=== PATIENT | male | born 1945 | race Asian ===

== ENCOUNTER 2017-03-21 16:55 | Emergency (ER) | payer MEDICARE, MEDICAID ==
[~2017-03-21] VITALS: Ht 162.6 cm; Wt 79.1 kg
[~2017-03-21 16:55] MED LIST: AMLO-511 PO; ASPI325T52 PO; ATEN50TA PO; ATOR20TA65 PO; LISI40TA4 PO; NITR.4 SL; RANO500T3 PO
[2017-03-21] MEDS ORDERED: ALBUTEROL SULFATE 2.5 MG/0.5 ML NEB SOLUTION NEB ONE (19:30)
[2017-03-21] MEDS ORDERED: IPRATROPIUM BROMIDE 0.5 MG/2.5 ML NEB SOLUTION NEB ONE (19:30)
[2017-03-21 19:35] LABS: BASOPHILS % (AUTO) 0.3 % (0.0-2.0); HEMATOCRIT 43.3 % (41-53); HEMOGLOBIN 14.4 g/dL (13.5-17.5); LYMPHOCYTES # (AUTO) 1.7 K/uL (1.0-4.8); LYMPHOCYTES % (AUTO) 24.5 % (22.0-44.0); MEAN CORPUSCULAR HEMOGLOBIN 28.5 pg (26.0-34.0); MEAN CORPUSCULAR HGB CONC 33.3 G/dL (31.0-37.0); MEAN CORPUSCULAR VOLUME 85 fL (80-100); MONOCYTES # (AUTO) 0.6 K/uL (0.1-1.0); MONOCYTES % (AUTO) 9.1 % (2.0-9.0); NEUTROPHILS # (AUTO) 3.9 K/uL (1.8-7.7); NEUTROPHILS % (AUTO) 56.1 % (40.0-70.0); PLATELET COUNT (AUTO) 280 K/uL (150-450); RED BLOOD CELL COUNT(AUTO) 5.07 MIL/uL (4.50-5.90); RED CELL DISTRIBUTION WIDTH 13.7 % (11.5-14.5)
[2017-03-21 19:40] LABS: ANION GAP 7 mmol/L (8-16); CALCIUM, TOTAL 9.4 mg/dL (8.8-10.5); CARBON DIOXIDE 30 mmol/L (22-29); CHLORIDE 101 mmol/L (98-107); CREATININE 1.38 mg/dL (0.60-1.30); GLOMERULAR FILTR. RATE CALC 51 mL/min (>60); POTASSIUM 3.7 mmol/L (3.5-5.1); SODIUM SERUM 138 mmol/L (136-145); UREA NITROGEN, BLOOD 23 mg/dL (7-18)
[2017-03-21 19:46] LABS: ALANINE AMINOTRANSFERASE 28 U/L (12-78); ALBUMIN 3.9 g/dL (3.4-5.0); ASPARTATE AMINOTRANSFERASE 18 U/L (15-37); BILIRUBIN,TOTAL 0.5 mg/dL (0.1-1.0); CREATINE KINASE, TOTAL 63 U/L (39-308); TOTAL PROTEIN, SERUM 8.3 g/dL (6.4-8.2)
[2017-03-21 19:48] LABS: PROTHROMBIN TIME 10.2 SEC (9.4-11.6)
[2017-03-21 20:15] LABS: B-TYPE NATRIURETIC PEPTIDE 76 pg/mL (0-100)
[2017-03-21 21:06] LABS: APPEARANCE,URINE CLEAR (CLEAR); GLUCOSE, URINE (UA) NEGATIVE (NEGATIVE); KETONES,URINE NEGATIVE (NEGATIVE); LEUKOCYTE ESTERASE ,URINE NEGATIVE (NEGATIVE); OCCULT BLOOD,URINE NEGATIVE (NEGATIVE); PROTEIN,URINE NEGATIVE (NEGATIVE)
[2017-03-21 21:14] LABS: ADD UA MICROSCOPIC NO
[2017-03-21 22:11] VITALS: BP 145/81
[2017-03-21] MEDS ORDERED: AmLODIPine BESYLATE 5 MG TABLET PO ONE (23:00)
== END 2017-03-21 22:57 | disposition home or self-care (01) ==
LOC: EMS 16:56
DX: R07.2 Precordial pain (principal); J44.9 Chronic obstructive pulmonary disease, unspecified; I11.9 Hypertensive heart disease without heart failure; I25.10 Atherosclerotic heart disease of native coronary artery without angina pectoris; E78.00 Pure hypercholesterolemia, unspecified; Z95.0 Presence of cardiac pacemaker
CPT/HCPCS: 93005; 94640; 99285

== ENCOUNTER 2019-03-04 08:04 | Emergency (ER) | payer MEDICARE, OTHER ==
[~2019-03-04] VITALS: Ht 162.6 cm; Wt 86.9 kg
[~2019-03-04 08:04] MED LIST changes: -AMLO-511 PO; +AMLO5TAB9 PO; +ASPI-1515 PO; -ASPI325T52 PO; -NITR.4 SL; +NITR0.4T52 SL
[2019-03-04] MEDS ORDERED: NITROGLYCERIN 0.4 MG SUBLINGUAL TABLET #25 SL ONE ×2 (08:13→08:30)
[2019-03-04] MEDS ORDERED: ASPIRIN 81 MG CHEWABLE TABLET ONE (08:13)
[2019-03-04] MEDS ORDERED: ASPIRIN 325 MG TABLET PO ONE (08:30)
[2019-03-04] MEDS ORDERED: SODIUM CHLORIDE 0.9% 500 ML IV ONE ×2 (08:30)
[2019-03-04] MEDS ORDERED: NITROGLYCERIN 50 MG/D5% WATER 250 ML IV PRN (08:30)
[2019-03-04] MEDS ORDERED: NITROGLYCERIN 50 MG/D5% WATER 250 ML ONE (08:41)
[2019-03-04 08:47] LABS: BASOPHILS % (AUTO) 0.4 % (0.0-2.0); EOSINOPHILS % (AUTO) 4.5 % (1.0-6.0); HEMATOCRIT 36.2 % (41-53); LYMPHOCYTES % (AUTO) 14.3 % (22.0-44.0); MEAN CORPUSCULAR HEMOGLOBIN 28.8 pg (26.0-34.0); MEAN CORPUSCULAR HGB CONC 33.2 G/dL (31.0-37.0); MEAN CORPUSCULAR VOLUME 87 fL (80-100); MONOCYTES # (AUTO) 0.4 K/uL (0.1-1.0); MONOCYTES % (AUTO) 6.1 % (2.0-9.0); NEUTROPHILS # (AUTO) 5.1 K/uL (1.8-7.7); NEUTROPHILS % (AUTO) 74.7 % (40.0-70.0); PLATELET COUNT (AUTO) 218 K/uL (150-450); RED BLOOD CELL COUNT(AUTO) 4.18 MIL/uL (4.50-5.90); RED CELL DISTRIBUTION WIDTH 13.6 % (11.5-14.5)
[2019-03-04 09:00] LABS: PROTHROMBIN TIME 9.9 SEC (9.4-11.6)
[2019-03-04] MEDS ORDERED: HEPARIN SODIUM,PORCINE 5,000 UNITS/ML VIAL ONE (09:02)
[2019-03-04] MEDS ORDERED: HEPARIN SODIUM,PORCINE 5,000 UNITS/ML VIAL IVP ONE ×2 (09:15)
[2019-03-04 09:18] VITALS: BP 129/74
[2019-03-04 09:24] LABS: CREATININE 1.7 mg/dL (0.60-1.30)
[2019-03-04 09:31] LABS: ALBUMIN 3.3 g/dL (3.4-5.0); BILIRUBIN,TOTAL 0.6 mg/dL (0.1-1.0); TOTAL PROTEIN, SERUM 6.5 g/dL (6.4-8.2)
== END 2019-03-04 09:36 | disposition short-term general hospital (02) ==
LOC: EMS 08:08
DX: I21.3 ST elevation (STEMI) myocardial infarction of unspecified site (principal); E11.65 Type 2 diabetes mellitus with hyperglycemia; N28.9 Disorder of kidney and ureter, unspecified; I10 Essential (primary) hypertension; E78.00 Pure hypercholesterolemia, unspecified; I25.10 Atherosclerotic heart disease of native coronary artery without angina pectoris; Z79.82 Long term (current) use of aspirin; Z79.899 Other long term (current) drug therapy
CPT/HCPCS: 71045; 80053; 82550; 83880; 84484; 85025; 85610; 85730; 93005; 96365; 96375; 99291; J1644; J3490; J7040

== ENCOUNTER 2019-06-04 10:34 | Inpatient (IN) | payer MEDICARE, OTHER ==
[~2019-06-04] VITALS: Ht 162.6 cm; Wt 81.1 kg
[2019-06-04 13:19] LABS: BASOPHILS % (AUTO) 0.3 % (0.0-2.0); HEMATOCRIT 45.8 % (41-53); HEMOGLOBIN 14.8 g/dL (13.5-17.5); LYMPHOCYTES # (AUTO) 0.9 K/uL (1.0-4.8); LYMPHOCYTES % (AUTO) 9.6 % (22.0-44.0); MEAN CORPUSCULAR HGB CONC 32.3 G/dL (31.0-37.0); MEAN CORPUSCULAR VOLUME 87 fL (80-100); MONOCYTES # (AUTO) 0.7 K/uL (0.1-1.0); MONOCYTES % (AUTO) 8.1 % (2.0-9.0); NEUTROPHILS # (AUTO) 7.2 K/uL (1.8-7.7); PLATELET COUNT (AUTO) 237 K/uL (150-450); RED BLOOD CELL COUNT(AUTO) 5.28 MIL/uL (4.50-5.90); RED CELL DISTRIBUTION WIDTH 13.8 % (11.5-14.5)
[2019-06-04 13:34] LABS: CALCIUM, TOTAL 9.4 mg/dL (8.8-10.5); CREATININE 2.34 mg/dL (0.60-1.30); POTASSIUM 4.5 mmol/L (3.5-5.1)
[2019-06-04 13:40] LABS: ALBUMIN 3.8 g/dL (3.4-5.0); BILIRUBIN,TOTAL 0.7 mg/dL (0.1-1.0); TOTAL PROTEIN, SERUM 8.6 g/dL (6.4-8.2)
[2019-06-04 13:41] LABS: LACTIC ACID 1.4 mmol/L (0.4-2.0)
[2019-06-04] MEDS ORDERED: ASPIRIN 81 MG CHEWABLE TABLET PO ONE (15:45)
[2019-06-04 15:54] LABS: INFLUENZA TYPE A POSITIVE FOR TYPE A (NEGATIVE); INFLUENZA TYPE B NEGATIVE FOR TYPE B (NEGATIVE)
[2019-06-04 16:57] LABS: APPEARANCE,URINE CLEAR (CLEAR); GLUCOSE, URINE (UA) NEGATIVE (NEGATIVE); KETONES,URINE NEGATIVE (NEGATIVE); LEUKOCYTE ESTERASE ,URINE NEGATIVE (NEGATIVE); NITRATE,URINE NEGATIVE (NEGATIVE); OCCULT BLOOD,URINE NEGATIVE (NEGATIVE); PROTEIN,URINE POS 1+ (NEGATIVE)
[2019-06-04 16:58] LABS: BILIRUBIN,URINE PRELIM. POSITIVE (NEGATIVE)
[2019-06-04 17:07] LABS: BACTERIA,URINE None Seen /HPF (None Seen); RBC,URINE None Seen /HPF (0-2); SQUAMOUS EPITHELIAL CELL,UR Rare /LPF (None Seen); WBC,URINE None Seen /HPF (0-5)
[2019-06-04] MEDS ORDERED: OSELTAMIVIR PHOSPHATE 75 MG CAPSULE PO ONE (17:30)
[2019-06-04] MEDS ORDERED: ACETAMINOPHEN 325 MG TABLET PO PRN ×2 (18:30→22:00)
[2019-06-04] MEDS ORDERED: 0.9% SODIUM CHLORIDE 10 ML SYRINGE IVP PRN ×2 (18:30→22:00)
[2019-06-04] MEDS ORDERED: ONDANSETRON HCL 4 MG/2 ML VIAL IVP PRN ×2 (18:30→22:00)
[2019-06-04] MEDS ORDERED: ZOLPIDEM TARTRATE 5 MG TABLET PO PRN (22:00)
[2019-06-04] MEDS ORDERED: IPRATROPIUM BROMIDE 0.5 MG/2.5 ML NEB SOLUTION NEB PRN (22:00)
[2019-06-04] MEDS ORDERED: ALBUTEROL SULFATE 2.5 MG/0.5 ML NEB SOLUTION NEB PRN (22:00)
[2019-06-04] MEDS ORDERED: NITROGLYCERIN 0.4 MG SUBLINGUAL TABLET #25 SL PRN (22:00)
[2019-06-04 22:29] VITALS: BP 157/78
[2019-06-04] MEDS ORDERED: SODIUM CHLORIDE 0.9% 250 ML IV ONE (22:35)
[2019-06-04] MEDS: RANOLAZINE 500 MG ER TABLET PO SCH (22:42)
[2019-06-04] MEDS: ATORVASTATIN CALCIUM 20 MG TABLET PO SCH (22:42)
[2019-06-04] MEDS: CefTRIAXone 1 GM/DEXTROSE 50 ML IV SCH (22:43)
[2019-06-05] MEDS: HEPARIN SODIUM,PORCINE 5,000 UNITS/ML VIAL SQ SCH ×3 (00:13→16:00)
[2019-06-05] MEDS: AZITHROMYCIN 500 MG/NS 250 ML IV SCH (00:13)
[2019-06-05] MEDS: IPRATROPIUM BROMIDE 0.5 MG/2.5 ML NEB SOLUTION NEB SCH ×4 (02:35→20:10)
[2019-06-05] MEDS: ALBUTEROL SULFATE 2.5 MG/0.5 ML NEB SOLUTION NEB SCH ×4 (02:35→20:10)
[2019-06-05 03:36] VITALS: BP 129/62
[2019-06-05 06:58] LABS: BASOPHILS % (AUTO) 0.2 % (0.0-2.0); EOSINOPHILS % (AUTO) 2.9 % (1.0-6.0); HEMATOCRIT 40.1 % (41-53); HEMOGLOBIN 13.1 g/dL (13.5-17.5); LYMPHOCYTES # (AUTO) 1.4 K/uL (1.0-4.8); LYMPHOCYTES % (AUTO) 18.6 % (22.0-44.0); MEAN CORPUSCULAR HEMOGLOBIN 28.1 pg (26.0-34.0); MEAN CORPUSCULAR HGB CONC 32.6 G/dL (31.0-37.0); MEAN CORPUSCULAR VOLUME 86 fL (80-100); MONOCYTES # (AUTO) 0.7 K/uL (0.1-1.0); MONOCYTES % (AUTO) 9.4 % (2.0-9.0); NEUTROPHILS # (AUTO) 5.3 K/uL (1.8-7.7); NEUTROPHILS % (AUTO) 68.9 % (40.0-70.0); PLATELET COUNT (AUTO) 228 K/uL (150-450); RED BLOOD CELL COUNT(AUTO) 4.65 MIL/uL (4.50-5.90); RED CELL DISTRIBUTION WIDTH 14.2 % (11.5-14.5)
[2019-06-05 07:26] LABS: ALBUMIN 3.4 g/dL (3.4-5.0); BILIRUBIN,TOTAL 0.6 mg/dL (0.1-1.0); CALCIUM, TOTAL 8.6 mg/dL (8.8-10.5); CREATININE 2.09 mg/dL (0.60-1.30); POTASSIUM 4.1 mmol/L (3.5-5.1); TOTAL PROTEIN, SERUM 7.5 g/dL (6.4-8.2)
[2019-06-05 07:31] VITALS: BP 126/64
[2019-06-05] MEDS: DOCUSATE SODIUM 100 MG CAPSULE PO SCH ×2 (08:11→21:00)
[2019-06-05] MEDS: PANTOPRAZOLE SODIUM 40 MG DR TABLET PO SCH (08:12)
[2019-06-05] MEDS: ASPIRIN 325 MG EC TABLET PO SCH (08:12)
[2019-06-05] MEDS: RANOLAZINE 500 MG ER TABLET PO SCH (08:13)
[2019-06-05] MEDS: AmLODIPine BESYLATE 5 MG TABLET PO SCH (08:13)
[2019-06-05] MEDS ORDERED: ATENOLOL 50 MG TABLET PO SCH (09:00)
[2019-06-05] MEDS: OSELTAMIVIR PHOSPHATE 30 MG CAPSULE PO SCH ×2 (09:00→21:15)
[2019-06-05] MEDS: LISINOPRIL 20 MG TABLET PO SCH (09:00)
[2019-06-05] MEDS ORDERED: OSELTAMIVIR PHOSPHATE 30 MG CAPSULE PO SCH (09:00)
[2019-06-05 11:24] VITALS: BP 102/53
[2019-06-05 15:01] VITALS: BP 117/51
[2019-06-05] MEDS ORDERED: CARV12.530 PO (16:33)
[2019-06-05] MEDS ORDERED: TICA60TA PO (16:33)
[2019-06-05 19:55] VITALS: BP 131/73
[2019-06-05] MEDS: ATORVASTATIN CALCIUM 20 MG TABLET PO SCH (21:15)
[2019-06-05] MEDS: CefTRIAXone 1 GM/DEXTROSE 50 ML IV SCH (21:16)
[2019-06-05 23:48] VITALS: BP 131/63
[2019-06-06] VITALS (7 sets, daily range): BP systolic 107–151; BP diastolic 47–84
[2019-06-06] MEDS: AZITHROMYCIN 500 MG/NS 250 ML IV SCH ×2 (00:02→23:38)
[2019-06-06] MEDS: HEPARIN SODIUM,PORCINE 5,000 UNITS/ML VIAL SQ SCH ×4 (00:02→23:38)
[2019-06-06] MEDS: RANOLAZINE 500 MG ER TABLET PO SCH ×3 (00:02→22:07)
[2019-06-06] MEDS: ALBUTEROL SULFATE 2.5 MG/0.5 ML NEB SOLUTION NEB SCH ×4 (02:22→19:31)
[2019-06-06] MEDS: IPRATROPIUM BROMIDE 0.5 MG/2.5 ML NEB SOLUTION NEB SCH ×4 (02:22→19:31)
[2019-06-06] MEDS: DOCUSATE SODIUM 100 MG CAPSULE PO SCH ×2 (09:00→21:00)
[2019-06-06] MEDS: ASPIRIN 325 MG EC TABLET PO SCH (09:59)
[2019-06-06] MEDS: PANTOPRAZOLE SODIUM 40 MG DR TABLET PO SCH (09:59)
[2019-06-06] MEDS: OSELTAMIVIR PHOSPHATE 30 MG CAPSULE PO SCH ×2 (10:00→21:36)
[2019-06-06] MEDS: LISINOPRIL 20 MG TABLET PO SCH (10:01)
[2019-06-06] MEDS: AmLODIPine BESYLATE 5 MG TABLET PO SCH (10:01)
[2019-06-06] MEDS ORDERED: SODIUM CHLORIDE 0.9% 500 ML IV ONE (10:45)
[2019-06-06] MEDS ORDERED: HydrALAZINE HCL 20 MG/ML VIAL IVP PRN (10:45)
[2019-06-06] MEDS: ATORVASTATIN CALCIUM 20 MG TABLET PO SCH (21:36)
[2019-06-06] MEDS: CefTRIAXone 1 GM/DEXTROSE 50 ML IV SCH (22:07)
[2019-06-07] MEDS: ALBUTEROL SULFATE 2.5 MG/0.5 ML NEB SOLUTION NEB SCH ×2 (01:12→09:15)
[2019-06-07] MEDS: IPRATROPIUM BROMIDE 0.5 MG/2.5 ML NEB SOLUTION NEB SCH ×2 (01:13→09:16)
[2019-06-07 04:26] VITALS: BP 128/52
[2019-06-07 06:46] LABS: BASOPHILS % (AUTO) 0.4 % (0.0-2.0); EOSINOPHILS % (AUTO) 4.4 % (1.0-6.0); HEMOGLOBIN 11.8 g/dL (13.5-17.5); LYMPHOCYTES # (AUTO) 1.4 K/uL (1.0-4.8); LYMPHOCYTES % (AUTO) 22.7 % (22.0-44.0); MEAN CORPUSCULAR HGB CONC 32.9 G/dL (31.0-37.0); MEAN CORPUSCULAR VOLUME 85 fL (80-100); MONOCYTES # (AUTO) 0.6 K/uL (0.1-1.0); MONOCYTES % (AUTO) 8.9 % (2.0-9.0); NEUTROPHILS % (AUTO) 63.6 % (40.0-70.0); PLATELET COUNT (AUTO) 229 K/uL (150-450); RED BLOOD CELL COUNT(AUTO) 4.23 MIL/uL (4.50-5.90); RED CELL DISTRIBUTION WIDTH 13.5 % (11.5-14.5)
[2019-06-07 07:08] LABS: ALBUMIN 2.8 g/dL (3.4-5.0); BILIRUBIN,TOTAL 0.4 mg/dL (0.1-1.0); CALCIUM, TOTAL 8.5 mg/dL (8.8-10.5); CREATININE 1.55 mg/dL (0.60-1.30); POTASSIUM 4.1 mmol/L (3.5-5.1); TOTAL PROTEIN, SERUM 6.9 g/dL (6.4-8.2)
[2019-06-07 08:30] VITALS: BP 150/73
[2019-06-07] MEDS: DOCUSATE SODIUM 100 MG CAPSULE PO SCH (09:00)
[2019-06-07] MEDS: RANOLAZINE 500 MG ER TABLET PO SCH (09:06)
[2019-06-07] MEDS: HEPARIN SODIUM,PORCINE 5,000 UNITS/ML VIAL SQ SCH (09:06)
[2019-06-07] MEDS: AmLODIPine BESYLATE 5 MG TABLET PO SCH (09:06)
[2019-06-07] MEDS: PANTOPRAZOLE SODIUM 40 MG DR TABLET PO SCH (09:07)
[2019-06-07] MEDS: ASPIRIN 325 MG EC TABLET PO SCH (09:07)
[2019-06-07] MEDS: OSELTAMIVIR PHOSPHATE 30 MG CAPSULE PO SCH (09:07)
[2019-06-07] MEDS ORDERED: CARV3.1262 PO (11:22)
[2019-06-07] MEDS ORDERED: LEVO500T2 PO (11:22)
[2019-06-07] MEDS ORDERED: OSEL30CA PO (11:22)
[2019-06-07 11:57] VITALS: BP 183/79
[2019-06-07 12:52] VITALS: BP 144/74
== END 2019-06-07 13:55 | disposition home or self-care (01) | DRG 871 ==
LOC: EMS 10:36 → 5S 21:00
PROVIDERS: ADMIT Internal Medicine; ATTEND Internal Medicine
DX: A41.9 Sepsis, unspecified organism (principal); J10.00 Influenza due to other identified influenza virus with unspecified type of pneumonia; I42.9 Cardiomyopathy, unspecified; N18.4 Chronic kidney disease, stage 4 (severe); N17.9 Acute kidney failure, unspecified; I25.10 Atherosclerotic heart disease of native coronary artery without angina pectoris; E78.00 Pure hypercholesterolemia, unspecified; E78.5 Hyperlipidemia, unspecified; I12.9 Hypertensive chronic kidney disease with stage 1 through stage 4 chronic kidney disease, or unspecified chronic kidney disease; I49.8 Other specified cardiac arrhythmias; Z95.1 Presence of aortocoronary bypass graft; Z79.899 Other long term (current) drug therapy; Z79.82 Long term (current) use of aspirin
CPT/HCPCS: 83605; 87040; 87804; 93005; 93306; 94640; G0378; J0360; J0456; J0696; J1644; J7040; J7050

== ENCOUNTER 2019-08-18 10:59 | Inpatient (IN) | payer MEDICARE, OTHER ==
[~2019-08-18] VITALS: Ht 162.6 cm; Wt 80.1 kg
[2019-08-18] MEDS: OXYGEN THERAPY IH SCH (09:00)
[~2019-08-18 10:59] MED LIST changes: -ATEN50TA PO; +CARV3.1262 PO; +LEVO500T2 PO; -LISI40TA4 PO; -NITR0.4T52 SL; +OSEL30CA PO; +TICA60TA PO
[2019-08-18] MEDS ORDERED: ASPIRIN 81 MG CHEWABLE TABLET PO ONE (11:45)
[2019-08-18] MEDS ORDERED: NITROGLYCERIN 2% (1 GM=INCH) PACKET TP ONE (11:45)
[2019-08-18 12:25] LABS: BASOPHILS % (AUTO) 0.4 % (0.0-2.0); EOSINOPHILS % (AUTO) 4.6 % (1.0-6.0); HEMATOCRIT 43.6 % (41-53); HEMOGLOBIN 14.1 g/dL (13.5-17.5); LYMPHOCYTES # (AUTO) 1.4 K/uL (1.0-4.8); LYMPHOCYTES % (AUTO) 21.7 % (22.0-44.0); MEAN CORPUSCULAR HEMOGLOBIN 27.4 pg (26.0-34.0); MEAN CORPUSCULAR HGB CONC 32.4 G/dL (31.0-37.0); MEAN CORPUSCULAR VOLUME 85 fL (80-100); MONOCYTES # (AUTO) 0.4 K/uL (0.1-1.0); NEUTROPHILS # (AUTO) 4.2 K/uL (1.8-7.7); NEUTROPHILS % (AUTO) 66.3 % (40.0-70.0); PLATELET COUNT (AUTO) 260 K/uL (150-450); RED BLOOD CELL COUNT(AUTO) 5.16 MIL/uL (4.50-5.90); RED CELL DISTRIBUTION WIDTH 13.8 % (11.5-14.5)
[2019-08-18 12:50] LABS: CALCIUM, TOTAL 9.7 mg/dL (8.8-10.5); CREATININE 1.77 mg/dL (0.60-1.30); POTASSIUM 4.4 mmol/L (3.5-5.1)
[2019-08-18] MEDS ORDERED: ONDANSETRON HCL 4 MG/2 ML VIAL IVP PRN ×2 (13:30→17:30)
[2019-08-18] MEDS ORDERED: ACETAMINOPHEN 325 MG TABLET PO PRN ×2 (13:30→17:30)
[2019-08-18 15:30] VITALS: BP 168/95
[2019-08-18] MEDS ORDERED: NITROGLYCERIN 2% (1 GM=INCH) PACKET TP PRN (17:30)
[2019-08-18] MEDS ORDERED: ZOLPIDEM TARTRATE 5 MG TABLET PO PRN (17:30)
[2019-08-18] MEDS ORDERED: NITROGLYCERIN 0.4 MG SUBLINGUAL TABLET #25 SL PRN (17:30)
[2019-08-18] MEDS: ASPIRIN 325 MG EC TABLET PO SCH (17:30)
[2019-08-18] MEDS: AmLODIPine BESYLATE 5 MG TABLET PO SCH (17:39)
[2019-08-18] MEDS ORDERED: MORPHINE SULFATE 2 MG/ML SYRINGE IVP PRN (18:00)
[2019-08-18] MEDS: ATORVASTATIN CALCIUM 20 MG TABLET PO SCH (20:42)
[2019-08-18] MEDS: RANOLAZINE 500 MG ER TABLET PO SCH (20:42)
[2019-08-18] MEDS: TICAGRELOR 60 MG TABLET PO SCH (20:42)
[2019-08-18 21:19] VITALS: BP 155/84
[2019-08-19 00:36] VITALS: BP 161/89
[2019-08-19 04:25] VITALS: BP 131/78
[2019-08-19 07:33] LABS: BASOPHILS % (AUTO) 0.6 % (0.0-2.0); EOSINOPHILS % (AUTO) 5.3 % (1.0-6.0); HEMATOCRIT 42.5 % (41-53); LYMPHOCYTES # (AUTO) 1.5 K/uL (1.0-4.8); LYMPHOCYTES % (AUTO) 20.9 % (22.0-44.0); MEAN CORPUSCULAR HEMOGLOBIN 27.9 pg (26.0-34.0); MEAN CORPUSCULAR VOLUME 85 fL (80-100); MONOCYTES # (AUTO) 0.6 K/uL (0.1-1.0); MONOCYTES % (AUTO) 8.1 % (2.0-9.0); NEUTROPHILS # (AUTO) 4.6 K/uL (1.8-7.7); NEUTROPHILS % (AUTO) 65.1 % (40.0-70.0); PLATELET COUNT (AUTO) 269 K/uL (150-450); RED BLOOD CELL COUNT(AUTO) 5.01 MIL/uL (4.50-5.90); RED CELL DISTRIBUTION WIDTH 13.9 % (11.5-14.5)
[2019-08-19 07:41] LABS: CALCIUM, TOTAL 9.5 mg/dL (8.8-10.5); CREATININE 1.8 mg/dL (0.60-1.30)
[2019-08-19 07:48] VITALS: BP 138/83
[2019-08-19] MEDS: RANOLAZINE 500 MG ER TABLET PO SCH ×2 (07:52→20:15)
[2019-08-19] MEDS: TICAGRELOR 60 MG TABLET PO SCH ×2 (07:52→20:16)
[2019-08-19] MEDS: ASPIRIN 325 MG EC TABLET PO SCH (07:52)
[2019-08-19] MEDS: AmLODIPine BESYLATE 5 MG TABLET PO SCH (07:53)
[2019-08-19] MEDS: FAMOTIDINE 10 MG/ML 2 ML VIAL IVP SCH (07:53)
[2019-08-19] MEDS: DOCUSATE SODIUM 100 MG CAPSULE PO SCH (07:54)
[2019-08-19] MEDS: OXYGEN THERAPY IH SCH ×2 (08:00→20:17)
[2019-08-19] MEDS ORDERED: CARVEDILOL 3.125 MG TABLET PO SCH (08:00)
[2019-08-19 11:32] VITALS: BP 148/83
[2019-08-19 15:57] VITALS: BP 133/76
[2019-08-19 16:21] LABS: CREATININE,URINE RANDOM 77.7 mg/dL (30.0-125.0); PROTEIN,URINE RANDOM 18 mg/dL (0-11.9); SODIUM,URINE RANDOM 72 mmol/l (20-110); UREA NITROGEN,URINE RANDOM 839 mg/dL (350-1000)
[2019-08-19 16:23] LABS: APPEARANCE,URINE CLEAR (CLEAR); BILIRUBIN,URINE NEGATIVE (NEGATIVE); GLUCOSE, URINE (UA) NEGATIVE (NEGATIVE); KETONES,URINE NEGATIVE (NEGATIVE); LEUKOCYTE ESTERASE ,URINE NEGATIVE (NEGATIVE); NITRATE,URINE NEGATIVE (NEGATIVE); OCCULT BLOOD,URINE NEGATIVE (NEGATIVE); PH,URINE 5.5 (5.0-8.0); PROTEIN,URINE NEGATIVE (NEGATIVE); UROBILINOGEN,URINE 0.2 mg/dL (<=1.0)
[2019-08-19 20:03] VITALS: BP 137/81
[2019-08-19] MEDS: ATORVASTATIN CALCIUM 20 MG TABLET PO SCH (20:15)
[2019-08-19] MEDS: CARVEDILOL 3.125 MG TABLET PO SCH (20:16)
[2019-08-20] VITALS (7 sets, daily range): BP systolic 115–153; BP diastolic 61–106
[2019-08-20 07:06] LABS: LDL CHOLESTEROL DIRECT 173 mg/dL (0-99)
[2019-08-20 07:48] LABS: BASOPHILS % (AUTO) 0.3 % (0.0-2.0); EOSINOPHILS % (AUTO) 4.9 % (1.0-6.0); HEMATOCRIT 41.2 % (41-53); HEMOGLOBIN 13.3 g/dL (13.5-17.5); LYMPHOCYTES # (AUTO) 1.4 K/uL (1.0-4.8); LYMPHOCYTES % (AUTO) 22.5 % (22.0-44.0); MEAN CORPUSCULAR HEMOGLOBIN 27.3 pg (26.0-34.0); MEAN CORPUSCULAR HGB CONC 32.2 G/dL (31.0-37.0); MEAN CORPUSCULAR VOLUME 85 fL (80-100); MONOCYTES # (AUTO) 0.5 K/uL (0.1-1.0); MONOCYTES % (AUTO) 8.6 % (2.0-9.0); NEUTROPHILS # (AUTO) 3.9 K/uL (1.8-7.7); NEUTROPHILS % (AUTO) 63.7 % (40.0-70.0); PLATELET COUNT (AUTO) 261 K/uL (150-450); RED BLOOD CELL COUNT(AUTO) 4.87 MIL/uL (4.50-5.90); RED CELL DISTRIBUTION WIDTH 14.1 % (11.5-14.5)
[2019-08-20] MEDS: OXYGEN THERAPY IH SCH ×2 (08:00→20:16)
[2019-08-20 08:05] LABS: CALCIUM, TOTAL 9.6 mg/dL (8.8-10.5); CREATININE 1.81 mg/dL (0.60-1.30); MAGNESIUM 2.1 mg/dL (1.80-2.40); PHOSPHORUS 4.8 mg/dL (2.5-4.9); POTASSIUM 4.1 mmol/L (3.5-5.1)
[2019-08-20] MEDS: ASPIRIN 325 MG EC TABLET PO SCH (08:12)
[2019-08-20] MEDS: FAMOTIDINE 10 MG/ML 2 ML VIAL IVP SCH (08:12)
[2019-08-20] MEDS: RANOLAZINE 500 MG ER TABLET PO SCH ×2 (08:12→21:03)
[2019-08-20] MEDS: TICAGRELOR 60 MG TABLET PO SCH ×2 (08:12→20:54)
[2019-08-20] MEDS: DOCUSATE SODIUM 100 MG CAPSULE PO SCH (08:12)
[2019-08-20] MEDS: AmLODIPine BESYLATE 5 MG TABLET PO SCH (08:15)
[2019-08-20] MEDS: CARVEDILOL 3.125 MG TABLET PO SCH ×2 (08:16→20:55)
[2019-08-20] MEDS: IPRATROPIUM BROMIDE 0.5 MG/2.5 ML NEB SOLUTION NEB SCH ×3 (14:59→23:18)
[2019-08-20] MEDS: ALBUTEROL SULFATE 2.5 MG/0.5 ML NEB SOLUTION NEB SCH ×3 (14:59→23:18)
[2019-08-20] MEDS: APIXABAN 5 MG TABLET PO SCH (20:54)
[2019-08-20] MEDS: ATORVASTATIN CALCIUM 20 MG TABLET PO SCH (20:55)
[2019-08-20] MEDS: AMIODARONE HCL 200 MG TABLET PO SCH (20:55)
[2019-08-21] MEDS: ALBUTEROL SULFATE 2.5 MG/0.5 ML NEB SOLUTION NEB SCH ×6 (04:37→22:47)
[2019-08-21] MEDS: IPRATROPIUM BROMIDE 0.5 MG/2.5 ML NEB SOLUTION NEB SCH ×6 (04:37→22:47)
[2019-08-21 06:00] VITALS: BP 118/73
[2019-08-21 07:14] LABS: CALCIUM, TOTAL 9.2 mg/dL (8.8-10.5); CREATININE 1.85 mg/dL (0.60-1.30); POTASSIUM 4.3 mmol/L (3.5-5.1)
[2019-08-21 07:15] VITALS: BP 133/73
[2019-08-21] MEDS: OXYGEN THERAPY IH SCH ×2 (08:00→21:14)
[2019-08-21] MEDS: TICAGRELOR 60 MG TABLET PO SCH ×2 (08:36→21:12)
[2019-08-21] MEDS: RANOLAZINE 500 MG ER TABLET PO SCH ×2 (08:36→21:12)
[2019-08-21] MEDS: DOCUSATE SODIUM 100 MG CAPSULE PO SCH (08:36)
[2019-08-21] MEDS: APIXABAN 5 MG TABLET PO SCH ×2 (08:36→21:13)
[2019-08-21] MEDS: AMIODARONE HCL 200 MG TABLET PO SCH ×2 (08:37→21:14)
[2019-08-21] MEDS: FAMOTIDINE 10 MG/ML 2 ML VIAL IVP SCH (08:38)
[2019-08-21] MEDS: CARVEDILOL 3.125 MG TABLET PO SCH ×2 (09:53→21:12)
[2019-08-21] MEDS: AmLODIPine BESYLATE 5 MG TABLET PO SCH (09:53)
[2019-08-21 11:35] VITALS: BP 142/78
[2019-08-21 16:00] VITALS: BP 150/75
[2019-08-21 20:33] VITALS: BP 152/92
[2019-08-21] MEDS: ATORVASTATIN CALCIUM 20 MG TABLET PO SCH (21:12)
[2019-08-22] VITALS (8 sets, daily range): BP systolic 130–162; BP diastolic 75–101
[2019-08-22] MEDS: ALBUTEROL SULFATE 2.5 MG/0.5 ML NEB SOLUTION NEB SCH ×6 (03:17→23:00)
[2019-08-22] MEDS: IPRATROPIUM BROMIDE 0.5 MG/2.5 ML NEB SOLUTION NEB SCH ×6 (03:17→23:00)
[2019-08-22] MEDS ORDERED: BENZOCAINE 20% 50 MCG/SPRAY 57 GM ONE (08:58)
[2019-08-22] MEDS ORDERED: PHENYLEPHRINE HCL 10 MG/ML VIAL IVP ONE (12:00)
[2019-08-22] MEDS: FAMOTIDINE 10 MG/ML 2 ML VIAL IVP SCH (12:36)
[2019-08-22] MEDS: APIXABAN 5 MG TABLET PO SCH ×2 (12:38→20:40)
[2019-08-22] MEDS: AMIODARONE HCL 200 MG TABLET PO SCH ×2 (12:39→20:41)
[2019-08-22] MEDS: RANOLAZINE 500 MG ER TABLET PO SCH ×2 (12:40→20:41)
[2019-08-22] MEDS: CARVEDILOL 3.125 MG TABLET PO SCH ×2 (12:41→20:41)
[2019-08-22] MEDS: AmLODIPine BESYLATE 5 MG TABLET PO SCH (12:42)
[2019-08-22] MEDS: DOCUSATE SODIUM 100 MG CAPSULE PO SCH (12:42)
[2019-08-22] MEDS: TICAGRELOR 60 MG TABLET PO SCH ×2 (12:43→20:41)
[2019-08-22] MEDS: OXYGEN THERAPY IH SCH ×2 (12:45→20:41)
[2019-08-22] MEDS: ATORVASTATIN CALCIUM 20 MG TABLET PO SCH (20:41)
[2019-08-23] VITALS (7 sets, daily range): BP systolic 112–152; BP diastolic 69–90
[2019-08-23] MEDS: IPRATROPIUM BROMIDE 0.5 MG/2.5 ML NEB SOLUTION NEB SCH ×6 (04:35→23:00)
[2019-08-23] MEDS: ALBUTEROL SULFATE 2.5 MG/0.5 ML NEB SOLUTION NEB SCH ×6 (04:35→23:00)
[2019-08-23] MEDS: CARVEDILOL 3.125 MG TABLET PO SCH ×2 (09:00→21:00)
[2019-08-23] MEDS: AmLODIPine BESYLATE 5 MG TABLET PO SCH (09:00)
[2019-08-23] MEDS: FAMOTIDINE 10 MG/ML 2 ML VIAL IVP SCH (09:48)
[2019-08-23] MEDS: TICAGRELOR 60 MG TABLET PO SCH ×2 (09:51→21:37)
[2019-08-23] MEDS: APIXABAN 5 MG TABLET PO SCH ×2 (09:51→21:00)
[2019-08-23] MEDS: DOCUSATE SODIUM 100 MG CAPSULE PO SCH (09:51)
[2019-08-23] MEDS: RANOLAZINE 500 MG ER TABLET PO SCH ×2 (09:51→21:37)
[2019-08-23] MEDS: OXYGEN THERAPY IH SCH ×2 (09:52→20:00)
[2019-08-23 12:32] LABS: MAGNESIUM 2.2 mg/dL (1.80-2.40); THYROID STIMULATING HORMONE 2.82 uIU/mL (0.36-3.74)
[2019-08-23] MEDS: ATORVASTATIN CALCIUM 20 MG TABLET PO SCH (21:37)
[2019-08-24] MEDS: ALBUTEROL SULFATE 2.5 MG/0.5 ML NEB SOLUTION NEB SCH ×4 (03:00→15:22)
[2019-08-24] MEDS: IPRATROPIUM BROMIDE 0.5 MG/2.5 ML NEB SOLUTION NEB SCH ×4 (03:00→15:22)
[2019-08-24 03:55] VITALS: BP 160/89
[2019-08-24 07:10] LABS: BASOPHILS % (AUTO) 0.2 % (0.0-2.0); EOSINOPHILS % (AUTO) 4.7 % (1.0-6.0); HEMOGLOBIN 12.9 g/dL (13.5-17.5); LYMPHOCYTES # (AUTO) 1.5 K/uL (1.0-4.8); LYMPHOCYTES % (AUTO) 21.2 % (22.0-44.0); MEAN CORPUSCULAR HEMOGLOBIN 27.8 pg (26.0-34.0); MEAN CORPUSCULAR HGB CONC 33.2 G/dL (31.0-37.0); MEAN CORPUSCULAR VOLUME 84 fL (80-100); MONOCYTES # (AUTO) 0.6 K/uL (0.1-1.0); NEUTROPHILS # (AUTO) 4.6 K/uL (1.8-7.7); NEUTROPHILS % (AUTO) 65.9 % (40.0-70.0); PLATELET COUNT (AUTO) 244 K/uL (150-450); RED BLOOD CELL COUNT(AUTO) 4.65 MIL/uL (4.50-5.90); RED CELL DISTRIBUTION WIDTH 13.8 % (11.5-14.5)
[2019-08-24 07:24] LABS: CALCIUM, TOTAL 8.9 mg/dL (8.8-10.5); CREATININE 1.8 mg/dL (0.60-1.30); POTASSIUM 4.3 mmol/L (3.5-5.1)
[2019-08-24] MEDS: OXYGEN THERAPY IH SCH (08:00)
[2019-08-24] MEDS: RANOLAZINE 500 MG ER TABLET PO SCH (08:36)
[2019-08-24] MEDS: DOCUSATE SODIUM 100 MG CAPSULE PO SCH (08:36)
[2019-08-24] MEDS: AmLODIPine BESYLATE 5 MG TABLET PO SCH (08:36)
[2019-08-24] MEDS: FAMOTIDINE 10 MG/ML 2 ML VIAL IVP SCH (08:39)
[2019-08-24 08:40] VITALS: BP 174/91
[2019-08-24] MEDS: TICAGRELOR 60 MG TABLET PO SCH (09:00)
[2019-08-24] MEDS: CARVEDILOL 3.125 MG TABLET PO SCH (09:00)
[2019-08-24] MEDS ORDERED: LOSARTAN POTASSIUM 25 MG TABLET PO SCH (11:15)
[2019-08-24] MEDS ORDERED: AmLODIPine BESYLATE 5 MG TABLET PO ONE (11:15)
[2019-08-24] MEDS ORDERED: APIXABAN 5 MG TABLET PO SCH (12:15)
[2019-08-24 13:05] VITALS: BP 135/86
[2019-08-24 13:45] VITALS: BP 184/96
[2019-08-24] MEDS ORDERED: CARV6 PO (14:02)
[2019-08-25] MEDS ORDERED: AmLODIPine BESYLATE 10 MG TABLET PO SCH (09:00)
== END 2019-08-24 16:38 | disposition home or self-care (01) | DRG 309 ==
LOC: EMS 11:00 → 5N 13:53 → 5S 14:56
PROVIDERS: ADMIT Hospitalist; ATTEND Hospitalist
PROC: 5A2204Z Restoration of Cardiac Rhythm, Single (ICD-10-PCS; principal; 2019-08-22)
PROC: B24BZZ4 Ultrasonography of Heart with Aorta, Transesophageal (ICD-10-PCS; 2019-08-22)
DX: I48.91 Unspecified atrial fibrillation (principal); N18.4 Chronic kidney disease, stage 4 (severe); I12.9 Hypertensive chronic kidney disease with stage 1 through stage 4 chronic kidney disease, or unspecified chronic kidney disease; I48.92 Unspecified atrial flutter; I25.10 Atherosclerotic heart disease of native coronary artery without angina pectoris; R07.81 Pleurodynia; E78.5 Hyperlipidemia, unspecified; J44.9 Chronic obstructive pulmonary disease, unspecified; I49.5 Sick sinus syndrome; E11.22 Type 2 diabetes mellitus with diabetic chronic kidney disease; E78.00 Pure hypercholesterolemia, unspecified; Z79.01 Long term (current) use of anticoagulants; Z95.5 Presence of coronary angioplasty implant and graft
CPT/HCPCS: 76770; 82570; 83721; 83735; 84100; 84156; 84300; 84443; 84540; 92960; 93005; 93306; 93312; 94640; J2370; J3490

== ENCOUNTER 2020-01-16 10:01 | Emergency (ER) | payer MEDICARE, OTHER ==
[~2020-01-16] VITALS: Ht 167.6 cm; Wt 81.8 kg
[~2020-01-16 10:01] MED LIST changes: +AMLO-257 PO; -AMLO5TAB9 PO; -CARV3.1262 PO; +CARV6 PO; -LEVO500T2 PO; -OSEL30CA PO
[2020-01-16] MEDS ORDERED: FLUORESCEIN SODIUM 1 MG STRIP OU ONE (10:45)
[2020-01-16] MEDS ORDERED: PROPARACAINE HCL 0.5% 15 ML OPHTHALMIC SOLUTION OD ONE (10:45)
[2020-01-16 11:20] VITALS: BP 153/78
== END 2020-01-16 12:02 | disposition home or self-care (01) ==
LOC: EMS 10:06
DX: H11.31 Conjunctival hemorrhage, right eye (principal); I10 Essential (primary) hypertension